=== PATIENT | female | born 1985 | race African-American/Black ===

== ENCOUNTER 2020-07-09 07:44 | Inpatient (IN) | payer OTHER ==
[2020-07-09] VITALS (10 sets, daily range): BP systolic 151–190; BP diastolic 82–112
[~2020-07-09] VITALS: Ht 172.7 cm; Wt 85.0 kg
[~2020-07-09 07:44] MED LIST: ACET32TAB PO; LR 1,000 ML IV ONE
[2020-07-09] MEDS ORDERED: ACET-683 PO (08:31)
[2020-07-09] MEDS ORDERED: ROCURONIUM BROMIDE 50 MG/5 ML VIAL As Ordered ONE (09:06)
[2020-07-09] MEDS ORDERED: SUGAMMADEX SODIUM 500 MG/5 ML VIAL (BRIDION) As Ordered ONE (09:06)
[2020-07-09] MEDS ORDERED: ACETAMINOPHEN 1000MG 100ML IV BTL (OFIRMEV) (J0131 PER 10MG) As Ordered ONE (09:06)
[2020-07-09] MEDS ORDERED: LIDOCAINE 2% 100MG/5ML SDV (FOR ANES.) As Ordered ONE (09:06)
[2020-07-09] MEDS ORDERED: ONDANSETRON 4MG/2ML VIAL As Ordered ONE (09:06)
[2020-07-09] MEDS ORDERED: fentaNYL 100 MCG/2 ML INJECTION (J3010) As Ordered ONE ×3 (09:06→13:34)
[2020-07-09] MEDS ORDERED: dexameTHASONE 4 MG/ML 1ML VIAL (J1100 PER 1MG) As Ordered ONE (09:06)
[2020-07-09] MEDS ORDERED: propofoL 200 MG/20 ML VIAL As Ordered ONE (09:06)
[2020-07-09] MEDS ORDERED: MIDAZOLAM INJ 2MG/2ML VIAL (J2250 PER 1MG) As Ordered ONE (09:06)
[2020-07-09 09:09] LABS: BASO % 0.3 % (0.0-1.0); EOS % 0.9 % (0.0-3.0); HEMATOCRIT 35.1 % (36.0-47.0); HEMOGLOBIN 11.4 g/dl (12.0-15.5); LYMPH # 1.6 10^3/uL (1.5-5.0); LYMPH % 48.9 % (24.0-44.0); MEAN CORPUSCULAR HEMOGLOBIN 27.4 pg (27.0-33.0); MEAN CORPUSCULAR HGB CONC 32.5 g/dl (32.0-36.5); MEAN CORPUSCULAR VOLUME 84.4 fl (80.0-96.0); MONO # 0.2 10^3/uL (0.0-0.8); MONO % 6.9 % (2.0-8.0); NEUTROPHILS # 1.4 10^3/uL (1.5-8.5); NEUTROPHILS % 42.7 % (36.0-66.0); PLATELET COUNT, AUTOMATED 292 10^3/uL (150-450); RED BLOOD COUNT 4.16 10^6/uL (4.00-5.40); WHITE BLOOD COUNT 3.2 10^3/uL (4.0-10.0)
[2020-07-09 09:36] LABS: APPEARANCE, URINE CLEAR (CLEAR); BACTERIA, URINE AUTO NEGATIVE (NEGATIVE); BILIRUBIN, URINE AUTO NEGATIVE (NEGATIVE); BLOOD, URINE BLOOD 1+ (NEGATIVE); COLOR, URINE YELLOW (YELLOW); GLUCOSE, URINE (UA) AUTO NEGATIVE (NEGATIVE); KETONE, URINE AUTO NEGATIVE (NEGATIVE); LEUKOCYTE ESTERASE, URINE AUTO NEGATIVE (NEGATIVE); MUCUS, URINE SMALL (NEGATIVE); NITRITE, URINE AUTO NEGATIVE (NEGATIVE); PROTEIN, URINE AUTO 1+ mg/dL (NEGATIVE); RBC, URINE AUTO 4 /HPF (0-3); SPECIFIC GRAVITY URINE AUTO 1.015 (1.002-1.035); SQUAMOUS EPITHELIAL CELL UR AU 2 /HPF (0-6); UROBILINOGEN, URINE AUTO 0.2 mg/dL (0.0-2.0); WBC, URINE AUTO 1 /HPF (0-3)
[2020-07-09] MEDS ORDERED: BUPIVACAINE LIPOSOME/PF 1.3% 20ML VIAL (13.3MG/ML)(EXPAREL)(C9290 PER1MG) As Ordered ONE (10:01)
[2020-07-09] MEDS ORDERED: METHYLENE BLUE 0.5% (5MG/ML) 10 ML AMP (PROVAYBLUE) As Ordered ONE (10:01)
[2020-07-09] MEDS ORDERED: VASOPRESSIN INJ 20 UNITS/ML VIAL As Ordered ONE (10:37)
[2020-07-09] MEDS ORDERED: HYDROmorphone HCL 2 MG/ML 1ML VIAL (J1170) As Ordered ONE (12:46)
[2020-07-09] MEDS ORDERED: SILVER NITRATE APPLICATOR As Ordered ONE (13:00)
[2020-07-09] MEDS: fentaNYL 100 MCG/2 ML INJECTION (J3010) IV PRN ×7 (13:35→14:33)
[2020-07-09] MEDS ORDERED: MEPERIDINE INJ 25 MG/ML VIAL (J2175) IV PRN (13:45)
[2020-07-09] MEDS ORDERED: ONDANSETRON 4MG/2ML VIAL IV PRN (13:45)
[2020-07-09] MEDS ORDERED: METOCLOPRAMIDE INJ 10MG/2ML VIAL (J2765 PER 1) IV PRN (13:45)
[2020-07-09] MEDS ORDERED: LR 1,000 ML IV SCH (13:45)
[2020-07-09] MEDS: oxyCODONE 5MG TAB PO PRN ×2 (14:18→14:56)
[2020-07-09] MEDS ORDERED: fentaNYL 100 MCG/2 ML INJECTION (J3010) IV PRN (15:05)
--- NOTE | 2020-07-09 20:30 | ROOPDOC ---
[facility] Report Of Operation Report of Operation DATE OF PROCEDURE: 07/09/20 PREPROCEDURE DIAGNOSES: 1. Abnormal uterine bleeding 2. Fibroid uterus 3. Desired fertility 4. Pelvic pain POSTPROCEDURE DIAGNOSES: 1. Abnormal uterine bleeding 2. Fibroid uterus 3. Desired fertility 4. Pelvic pain PROCEDURE: 1. Abdominal myomectomy 2. Chromopertubation SURGEON: Idalmis Birmingham DO CLEARANCE CUTTER: Joselito Gibson DO ANESTHESIA: General ESTIMATED BLOOD LOSS: Approximately 300mL. FLUIDS: 1600ml LR URINE OUTPUT: 500ml COMPLICATIONS: None FINDINGS: Multilobular uterus with multiple fibroids (total of 7 fibroids removed). Normal-appearing bilateral ovaries. Normal-appearing left fallopian tube. Right fallopian tube with two peritubal cysts. Endometrial cavity was entered near the fundus while removing one fibroid that was noted to be submucosal. Chromopertubation attempted at completion of myomectomy but unable to push dye into tubes due to entry into the endometrial cavity. Bilateral fa llopian tubes were away from operative site. PROCEDURE NOTE: The risks, benefits, indications and alternatives of the procedure were reviewed with the patient and informed consent was obtained. The patient was taken to the operating room where general anesthesia was obtained without difficulty. The patient was then placed in the low lithotomy position using Oleg Stirrups. An exam under anesthesia was then performed and significant for a 16-week size uterus that is midline with good mobility. An abdominal and vaginal prep were then performed in the normal, sterile fashion and a Thomas catheter was placed. A Zumi uterine manipulator was placed and methylene blue dye was injected through the manipulator into the endometrial cavity. Gloves were exchanged and attention turned to the abdomen. A Pfannensteil skin incision was then made with the scalpel and carried down to the underlying layer of fascia using electrocautery. The fascia was incised in the midline and the incision extended laterally with the Galvez scissors. The superior aspect of the fascial incision was grasped with the Arturo clamps, elevated, and the underlying rectus muscles dissected off aided with the scalpel. Attention was then turned to the inferior aspect of this incision, which, in a similar fashion, was grasped, tented up with the Arturo clamps and the rectus muscle dissected off aided with the Galvez scissors. The peritoneum was entered bluntly. The peritoneal incision was then extended superiorly and inferiorly using blunt dissection. A Mobius self-retractor was placed and moist sponges were placed into the abdomen to pack the bowel away from the surgical field. The uterus was then lifted to the level of the incision using Gale Thyroid clamps noting fibroids fundally, anteriorly, and subserosally. Bilateral ovaries and the left fallopian tube were normal- appearing. The right fallopian tube was notable for two peritubal cysts that were removed using electrocautery and sent to pathology. The serosa overlying the fundal and anterior fibroids were then injected with dilute vasopressin. An incision was then made into the serosa using the Bovie overlying the largest fibroid located in the anterior fundal aspect of the uterus. The fibroid was grasped with the Gale Thyroid clamp and from the capsule using blunt dissection with the assistance of the Bovie. It was noted that this fibroid must have been submucosal in nature as the endometrial cavity was entered while removing the fibroid due to presence of methylene blue identified upon its removal. The 0.5cm opening into the endometrial cavity was closed using 3-0 vicryl in a running, non-locking fashion. Two smaller intramural fibroids were identified in the myometrium that were removed using blunt dissection. The serosal incision was extended inferiorly over the large anterior fibroid that was grasped with the Gale Thyroid clamp and from the capsule using blunt dissection with the assistance of the Bovie. One other smaller fibroid was identified once the larger fibroid was removed and was also removed in similar fashion. The myomectomy sites were closed in three layers with 0-vicryl in running, non- locking fashion. The serosa was closed with 3-0 monocryl using baseball stitch with hemostasis noted. A subserosal posterior fundal fibroid was then incised with Bovie cautery at its base with subsequent removal. A single interrupted suture was used to reapproximate the myomectomy site and the serosa closed with 3-0 monocryl in a baseball stitch. A second subserosal fibroid on the anterior aspect of the uterus away from the previous myomectomy site was removed using the Bovie cautery. This site was reapproximated only with 3-0 monocryl in a baseball stitch due to only serosal involvement. Methylene blue was used for chromopertubation but did not demonstrate spill from either fallopian tube. At completion of the case the posterior cul-de-sac was irrigated with warm saline. The myomectomy sites were inspected and found to be hemostatic. Fanny was applied over the myomectomy sites for additional hemostasis. Sepra film was applied over the uterus covering the myomectomy sites as an adhesion barrier. All instruments were then removed from the abdominal cavity and an additional lap count performed that was correct x2. The fascia was closed with 0-vicryl in running, non-locking fashion. Irrigation was then performed in the subcutaneous and Experell injected into the fascial and skin layers. The subcutaneous tissue was reapproximated with the interrupted sutures using 3-0 vicryl. The skin was closed with 4-0 monocryl in a subcuticular fashion. The incision was then dressed and a pressure dressing applied with Steri-Strips. At the completion of the case, the Zumi uterine manipulator was removed along with all other instruments from the vagina with tenaculum sites made hemostatic using silver nitrate. The patient tolerated the procedure well. Sponge, lap and needle counts were correct times three. The patient was taken to the recovery room in stable condition. It is recommended that this patient undergo a section at 37 weeks for any future pregnancies due to extensive myomectomy and entry into the endometrial cavity while removing a submucosal fibroid. IDALMIS BIRMINGHAM. DO Jul 09, 2020 13:50
[2020-07-10 03:32] VITALS: BP 152/83
[2020-07-10 07:02] LABS: HEMATOCRIT 28.8 % (36.0-47.0); HEMOGLOBIN 9.6 g/dl (12.0-15.5); LYMPH # 1.2 10^3/uL (1.5-5.0); LYMPH % 16.9 % (24.0-44.0); MEAN CORPUSCULAR HGB CONC 33.3 g/dl (32.0-36.5); MONO # 0.5 10^3/uL (0.0-0.8); MONO % 7.5 % (2.0-8.0); NEUTROPHILS # 5.3 10^3/uL (1.5-8.5); NEUTROPHILS % 75.3 % (36.0-66.0); PLATELET COUNT, AUTOMATED 258 10^3/uL (150-450); RED BLOOD COUNT 3.43 10^6/uL (4.00-5.40); WHITE BLOOD COUNT 7.1 10^3/uL (4.0-10.0)
[2020-07-10 08:00] VITALS: BP 135/80
[2020-07-10 12:00] VITALS: BP 130/76
--- NOTE | 2020-07-11 07:25 | DS.PDOC ---
Discharge Summary General Date of Admission Jul 09, 2020 at 07:44 Date of Discharge 07/10/2020 Attending Physician: JANE LUDWIG DO Discharge Summary PROCEDURES PERFORMED DURING STAY: 1. Abdominal myomectomy 2. Chromopertubation ADMITTING DIAGNOSES: 1. Abnormal uterine bleeding 2. Pelvic pain 3. Fibroid uterus DISCHARGE DIAGNOSES: 1. Abnormal uterine bleeding 2. Pelvic pain 3. Fibroid uterus COMPLICATIONS/CHIEF COMPLAINT: Fibroid Uterus. HISTORY OF PRESENT ILLNESS: Romelia has a history of painful abnormal uterine bleeding with future fertility desires requesting abdominal myomectomy. HOSPITAL COURSE: Romelia was admitted to the pre-operative unit where she was prepared for surgery. She was then taken to the operating room where she underwent an uncomplicated abdominal myomectomy and chromopertubation. She was awoken from anesthesia and taken to the PACU for immediate post-operative recovery. She was then transferred to the inpatient og for continued post-op erative care. She initially had difficulty with pain control causing high blood pressures but her pain was brought back under control with the assistance of IV morphine and neurontin after patient spontaneously voided. Patient was tolerating regular diet, ambulating without assistance, voiding spontaneously, and pain controlled on oral pain medications. She requested discharge home on post-operative day #1. DISCHARGE MEDICATIONS: prescriptions placed at [facility] 1. Percocet 2. Colace ALLERGIES: Please see below. PHYSICAL EXAMINATION ON DISCHARGE: VITAL SIGNS: Please see below. GENERAL: Resting comfortably in bed in NAD conversing in full sentences HEENT: NC/AT, airway patent and self-maintained CARDIOVASCULAR EXAMINATION: well-perfused, no edema RESPIRATORY EXAMINATION: no exaggerated respiratory effort appreciated ABDOMINAL EXAMINATION: soft, nondistended, appropriately tender to lower quadrants INCISION: c/d/i with dressing removed and steri strips in place EXTREMITIES: no edema SKIN: warm, pink, dry LABORATORY DATA: Please see below. PROGNOSIS: Good ACTIVITY: Pelvic rest for 6 weeks. No heavy lifting for 6 weeks DIET: Regular as tolerated DISPOSITION: to home in care of family DISCHARGE CONDITION: Stable TIME SPENT ON DISCHARGE: Greater than 30 minutes. Vital Signs/I&Os Vital Signs Date Time Temp Pulse Resp B/P (MAP) Pulse Ox O2 Delivery O2 Flow Rate FiO2 07/10/20 14:09 19 07/10/20 12:00 98.5 79 130/76 (94) 99 Room Air I&O- Last 24 Hours up to 6 AM 07/10/20 06:00 Intake Total 5335 ml Output Total 2475 ml Balance 2860 ml Laboratory Data Labs 24H Laboratory Tests 2 07/10/20 06:22: Immature Granulocyte % (Auto) 0.3, Neutrophils (%) (Auto) 75.3H, Lymphocytes (%) (Auto) 16.9L, Monocytes (%) (Auto) 7.5, Eosinophils (%) (Auto) 0.0, Basophils (%) (Auto) 0.0, Neutrophils # (Auto) 5.3, Lymphocytes # (Auto) 1.2L, Monocytes # (Auto) 0.5, Eosinophils # (Auto) 0.0, Basophils # (Auto) 0.0, Nucleated Red Blood Cells % (auto) 0.0 CBC/BMP Laboratory Tests 07/10/20 06:22 Discharge Medications No Active Prescriptions or Reported Meds Allergies Coded Allergies: NSAIDS (Non-Steroidal Anti-Inflamma (Verified Allergy, Unknown, 07/09/20) JANE LUDWIG DO Jul 10, 2020 14:28
== END 2020-07-10 15:20 | disposition home or self-care (01) | DRG 743 ==
LOC: M OR 07:44 → M PED 15:25
PROC: 0UB50ZZ Excision of Right Fallopian Tube, Open Approach (ICD-10-PCS; 2020-07-09)
PROC: 0UB90ZZ Excision of Uterus, Open Approach (ICD-10-PCS; principal; 2020-07-09 09:30)
DX: D25.0 Submucous leiomyoma of uterus (principal); R10.2 Pelvic and perineal pain; N93.9 Abnormal uterine and vaginal bleeding, unspecified; D25.2 Subserosal leiomyoma of uterus; N83.8 Other noninflammatory disorders of ovary, fallopian tube and broad ligament; Z88.6 Allergy status to analgesic agent

== ENCOUNTER 2020-10-29 09:32 | Day surgery (SDC) | payer OTHER ==
[~2020-10-29] VITALS: Ht 172.7 cm; Wt 88.8 kg
[~2020-10-29 09:32] MED LIST changes: +ACET-683 PO; +LIDOCAINE 1% MDV 20ML VIAL SQ PRN
[2020-10-29 10:16] LABS: HEMATOCRIT 35.7 % (36.0-47.0); HEMOGLOBIN 11.1 g/dl (12.0-15.5); MEAN CORPUSCULAR HEMOGLOBIN 24.7 pg (27.0-33.0); MEAN CORPUSCULAR HGB CONC 31.1 g/dl (32.0-36.5); MEAN CORPUSCULAR VOLUME 79.3 fl (80.0-96.0); PLATELET COUNT, AUTOMATED 399 10^3/uL (150-450); WHITE BLOOD COUNT 3.9 10^3/uL (4.0-10.0)
[2020-10-29 10:48] LABS: HCG, SERUM QUALITATIVE NEGATIVE (NEGATIVE)
[2020-10-29] MEDS ORDERED: IODINE STRONG SOLN 15 ML BTL As Ordered ONE (12:18)
[2020-10-29] MEDS ORDERED: LIDOCAINE W/EPINEPHRINE 1% 20ML VIAL As Ordered ONE (12:18)
[2020-10-29] MEDS ORDERED: propofoL 200 MG/20 ML VIAL As Ordered ONE ×2 (12:19→12:21)
[2020-10-29] MEDS ORDERED: LIDOCAINE 2% INJ 100 MG/5 ML SYRINGE As Ordered ONE (12:19)
[2020-10-29] MEDS ORDERED: METOCLOPRAMIDE INJ 10MG/2ML VIAL (J2765 PER 1) As Ordered ONE (12:19)
[2020-10-29] MEDS ORDERED: fentaNYL 100 MCG/2 ML INJECTION (J3010) As Ordered ONE (12:20)
[2020-10-29] MEDS ORDERED: LIDOCAINE 2% 100MG/5ML SDV (FOR ANES.) As Ordered ONE ×2 (12:40→12:41)
[2020-10-29] MEDS ORDERED: oxyCODONE 5MG TAB PO PRN (13:35)
[2020-10-29] MEDS ORDERED: ONDANSETRON 4MG/2ML VIAL IV PRN (13:35)
[2020-10-29] MEDS ORDERED: LR 1,000 ML IV SCH (13:35)
--- NOTE | 2020-10-29 14:22 | RO ---
OPERATIVE NOTE DATE OF OPERATION: 10/29/2020 PREOPERATIVE DIAGNOSIS: Cervical dysplasia. POSTOPERATIVE DIAGNOSIS: Cervical dysplasia. PROCEDURE: Loop electrosurgical excision procedure. SURGEON: Joselito Gibson DO SYSTEM SAFETY ENGINEER: None. ANESTHESIA: General. IV FLUIDS: 500 mL LR. URINE OUTPUT: 50 mL via straight cath. ESTIMATED BLOOD LOSS: 1 mL. ANTIBIOTICS: None indicated. COMPLICATIONS: None. DESCRIPTION OF PROCEDURE: The risks, benefits, indications, and alternatives of the procedure were reviewed with the patient and informed consent was obtained. The patient was taken to the operating room where general anesthesia was obtained without difficulty. The patient was then placed in the lithotomy position using Oleg stirrups. The patient was prepped and draped in the usual sterile fashion. The bladder was drained using in and out catheter. A surgical time out was then performed and the patient's identity and planned procedure verified with the operative team. A sterile Graves speculum was then placed into the vagina and the cervix was visualized. A paracervical block was then performed using approximately 10 mL of Lidocaine with Epinephrine. Lugol's solution was then copiously applied to the cervix which highlighted a lesion at the 6 o'clock position. The LEEP device was then set to 60/60 blend and activated. The loop electrocautery wire was passed across the external cervical os with a single pass. Production of adequate tissue sample was collected and sent to pathology for review. Superficial electrocoagulation of the cervical stroma was performed with excellent hemostasis noted. Monsel's solution was then applied to the cervix. The cervix remained hemostatic. All instruments were then removed from the patient's vagina. At the completion of the case the sponge, instrument, and needle counts were correct x2. The patient tolerated the procedure well and was taken to the PACU in stable condition. [facility]
[2020-10-29 14:40] VITALS: BP 140/79
== END 2020-10-29 14:42 | disposition home or self-care (01) ==
LOC: M SDC 09:32
PROVIDERS: ATTEND Obstetrics & Gynecology
DX: N87.0 Mild cervical dysplasia (principal); D55.0 Anemia due to glucose-6-phosphate dehydrogenase [G6PD] deficiency; Z88.8 Allergy status to other drugs, medicaments and biological substances
CPT/HCPCS: 36415; 57522; 84703; 85027; 86850; 86900; 86901; 88307; J2765; J3010

== ENCOUNTER 2022-04-04 21:57 | Emergency (ER) | payer OTHER ==
[~2022-04-04] VITALS: Ht 172.7 cm; Wt 83.8 kg
[~2022-04-04 21:57] MED LIST changes: -LIDOCAINE 1% MDV 20ML VIAL SQ PRN; -LR 1,000 ML IV ONE
[2022-04-04 21:58] VITALS: BP 159/90
[2022-04-04] MEDS ORDERED: ACETAMINOPHEN 500 MG TAB PO ONE (22:30)
[2022-04-04] MEDS ORDERED: LIDOCAINE VISCOUS 2% SOLN 15ML UDC SS ONE (22:40)
[2022-04-04] MEDS ORDERED: BENZ200C70 PO (22:47)
[2022-04-04] MEDS ORDERED: BENZONATATE 100MG CAPSULE PO ONE (22:50)
== END 2022-04-04 23:29 | disposition home or self-care (01) ==
LOC: M ED 21:57
DX: U07.1 COVID-19 (principal); M25.569 Pain in unspecified knee; G89.29 Other chronic pain; Z88.8 Allergy status to other drugs, medicaments and biological substances